=== PATIENT | male | born 1990 | race African-American/Black ===

== ENCOUNTER 2019-01-17 22:20 | Emergency (ER) | payer SELFPAY ==
[~2019-01-17] VITALS: Ht 170.2 cm; Wt 72.4 kg
[2019-01-17 22:29] VITALS: BP 133/86
[2019-01-17] MEDS ORDERED: LIDOCAINE-MPF 1%, 5ML ONE (23:24)
[2019-01-17] MEDS ORDERED: DIPH,PERTUSS(ACELL),TET VAC/PF 0.5 ML IM-VACC ONE ×2 (23:30→23:54)
[2019-01-17] MEDS ORDERED: LIDOCAINE-MPF 1%, 5ML INFIL ONE (23:30)
--- NOTE | 2019-01-18 00:20 | NUR ---
DC EDUCATION PROVIDED, PT DEMONSTRATES UNDERSTANDING. PT AMBULATED STEADILY TO DC WITH RN
== END 2019-01-18 00:21 | disposition home or self-care (01) ==
LOC: ED 23:59
DX: S81.011A Laceration without foreign body, right knee, initial encounter (principal); X58.XXXA Exposure to other specified factors, initial encounter; Y93.89 Activity, other specified; Y92.89 Other specified places as the place of occurrence of the external cause; Y99.8 Other external cause status
CPT/HCPCS: 12031; 90471; 90715; 99284